=== PATIENT | female | born 1935 | race Caucasian/White ===

== ENCOUNTER 2021-08-22 11:15 | Inpatient (IN) | payer MEDICARE ==
[2021-08-22 12:36] LABS: #Eosinphils 0.1 10x3/uL (0.0-0.5); #Monocytes 0.7 10x3/uL (0.0-1.1); #Neutrophils 5.1 10x3/uL (1.5-8.4); %Basophils 0.6 % (0.0-2.0); %Eosinophils 1.1 % (0.0-6.0); %Lymphocytes 15.8 % (18.0-47.0); %Monocytes 9.7 % (0.0-10.0); %Neutrophils 72.4 % (40.0-75.0); Hemoglobin 12.4 g/dL (12.0-15.5); Mean Corpuscular HGB CONC 31.9 g/dL (32.0-36.0); Mean Corpuscular Hemoglobin 29.5 pg (27.0-33.0); Mean Corpuscular Volume 92.6 fl (81.6-98.3); Mean Platelet Volume 10.6 fl (7.4-10.4); Platelet Count 233 10x3/uL (150-450); RBC Distribution Width 14.3 % (11.5-14.5)
[2021-08-22 12:50] LABS: Bilirubin Neg (Negative); Blood, Urine 10 (Negative); Clarity Clear (Clear); Glucose, Urine (Dipstick) Normal (Negative); Ketone, Urine Negative (Negative); Leukocyte 500 (Negative); Nitrite Negative (Negative); Protein, Urine (Dipstick) 30 mg/dl (Neg-Trace); Urobilinogen Normal mg/dL (Less than 2)
[2021-08-22 12:55] LABS: Prothrombin Time 10.8 sec (9.5-12.1)
[2021-08-22 12:56] LABS: Anion Gap 18 mmol/L (10-20); BUN (Urea Nitrogen) 34 mg/dL (9.8-20.1); Calc. Creatinine Clearance 0 mL/min (70-130); Calcium 9.7 mg/dL (7.8-10.44); Carbon Dioxide 22 mmol/L (23-31); Chloride 106 mmol/L (98-107); Glucose 81 mg/dL (83-110); Sodium 141 mmol/L (136-145)
[2021-08-22 12:59] LABS: Potassium 5.2 mmol/L (3.5-5.1)
[2021-08-22 17:56] LABS: SARS-CoV-2 PCR by NAA Not Detected (NotDetected)
[2021-08-23 09:18] VITALS: BMI 34.7
[2021-08-27] MEDS ORDERED: Sodium Chloride 0.9% 100 ML ONE (07:46)
[2021-08-27] MEDS ORDERED: Tranexamic Acid 1,000 MG/10 ML VIAL ONE ×2 (07:46→11:56)
[2021-08-27] MEDS ORDERED: Midazolam HCl 2 mg/2 ml Vial ONE (07:58)
[2021-08-27] MEDS ORDERED: Vancomycin 1.5 GRAM/300 ML BAG 1.5 GM in Premix Bag 1 BAG IVPB SCH (08:15)
[2021-08-27] MEDS ORDERED: Fentanyl 100 MCG/2 ML VIAL IV PRN (08:31)
[2021-08-27] MEDS ORDERED: Lidocaine 1% PF 5 ML VIAL ONE (08:44)
[2021-08-27] MEDS ORDERED: PROPOFOL 200 MG/20 ML VIAL ONE (08:44)
[2021-08-27] MEDS ORDERED: Dexamethasone 20 MG/5 ML VIAL ONE (08:44)
[2021-08-27] MEDS ORDERED: Ondansetron PF 4 MG/2 ML Vial ONE (08:44)
[2021-08-27] MEDS ORDERED: Bupivacaine HCl 0.5%/Epinephrine 1:200,000/PF 30 ml Vial ONE (08:44)
[2021-08-27] MEDS ORDERED: Promethazine HCl 25 MG/ML VIAL IM PRN ×3 (08:45→11:28)
[2021-08-27] MEDS ORDERED: Ondansetron PF 4 MG/2 ML Vial IVP PRN ×2 (08:45→11:14)
[2021-08-27] MEDS ORDERED: traMADol HCl 50 MG TAB PO PRN ×2 (08:45)
[2021-08-27] MEDS ORDERED: Zolpidem Tartrate 5 MG TAB PO PRN ×2 (08:45→11:14)
[2021-08-27] MEDS ORDERED: Ropivacaine 0.2% 550 ML 550 ML NERVE BLCK SCH (08:45)
[2021-08-27] MEDS ORDERED: Fentanyl 250 MCG/5 ML VIAL ONE ×2 (08:50→12:07)
[2021-08-27] MEDS ORDERED: Bupivacaine PF 0.5% 30 ML VIAL ONE (09:10)
[2021-08-27] MEDS ORDERED: ceFAZolin 2 GM/DEX 5% 100 ML BAG ONE (09:19)
[2021-08-27] MEDS ORDERED: methylPREDNISolone Acetate 40 mg/ml Vial ONE (09:40)
[2021-08-27] MEDS ORDERED: Lidocaine 1% (PF) 30 ML VIAL ONE (09:40)
[2021-08-27] MEDS ORDERED: diphenhydrAMINE 25 MG CAP PO PRN (11:14)
[2021-08-27] MEDS ORDERED: Acetaminophen 325 MG TAB PO PRN (11:14)
[2021-08-27] MEDS ORDERED: Fluticasone Propionate Nasal Spray 16 gm Bottle NASAL PRN (11:15)
[2021-08-27] MEDS ORDERED: Tranexamic Acid 1,000 MG in Sodium Chloride 0.9% 100 ML IVPB SCH (11:15)
[2021-08-27] MEDS ORDERED: Promethazine HCl 25 MG/ML VIAL IVPB PRN (11:28)
[2021-08-27] MEDS ORDERED: Ondansetron HCl/PF 4 MG/2 ML Vial IVP PRN (11:28)
[2021-08-27] MEDS ORDERED: Ketorolac Tromethamine 30 MG/ML VIAL ONE (12:13)
[2021-08-27] MEDS: Ketorolac Tromethamine 30 MG/ML VIAL IVP SCH ×2 (12:16→18:51)
[2021-08-27] MEDS: Sodium Chloride 0.9% 1,000 ML IV SCH (12:58)
[2021-08-27] MEDS ORDERED: CEFAZOLIN 2 GM in Sodium Chloride 0.9% 100 ML IVPB SCH (17:00)
[2021-08-27] MEDS: Atorvastatin Calcium 20 MG TAB PO SCH (19:57)
[2021-08-27] MEDS: Ferrous Gluconate 324 MG TAB PO SCH (19:57)
[2021-08-27] MEDS: Aspirin 81 mg Enteric Coated Tablet PO SCH (19:57)
[2021-08-27] MEDS: Lisinopril 20 MG TAB PO SCH (19:59)
[2021-08-27] MEDS: Senokot S 8.6-50 MG TAB PO SCH (20:07)
[2021-08-27] MEDS ORDERED: Vancomycin HCl 1.5 GM in Sodium Chloride 0.9% 250 ML 300 ML IVPB SCH (22:00)
[2021-08-28] MEDS: Ketorolac Tromethamine 30 MG/ML VIAL IVP SCH ×4 (00:56→18:12)
[2021-08-28] MEDS: Sodium Chloride 0.9% 1,000 ML IV SCH ×3 (00:57→18:12)
[2021-08-28] MEDS ORDERED: CEFAZOLIN 2 GM, Admixture Fee 1 EACH in Sodium Chloride 0.9% 100 ML IVPB SCH (04:00)
[2021-08-28] MEDS: Levothyroxine Sodium 125 MCG TAB PO SCH (06:13)
[2021-08-28 07:25] LABS: Mean Corpuscular Hemoglobin 30.4 pg (27.0-31.0); Mean Corpuscular Volume 94.9 fL (78.0-98.0); Mean Platelet Volume 7.6 fL (7.4-10.4); Platelet Count 233 thou/uL (130-400); RBC Distribution Width 12.8 % (11.5-14.5); Red Blood Cell (RBC) Count 3.61 mill/uL (4.20-5.40); White Blood Cell (WBC) Count 14.5 thou/uL (4.8-10.8)
[2021-08-28] MEDS ORDERED: Aspirin Chewable 81 MG TAB PO SCH (09:00)
[2021-08-28] MEDS: Lisinopril 20 MG TAB PO SCH ×2 (09:46→22:08)
[2021-08-28] MEDS: Aspirin 81 mg Enteric Coated Tablet PO SCH ×2 (09:46→22:09)
[2021-08-28] MEDS: Cholecalciferol 1,000 UNITS (25 MCG) TAB PO SCH (09:48)
[2021-08-28] MEDS: Ferrous Gluconate 324 MG TAB PO SCH ×2 (09:48→22:09)
[2021-08-28] MEDS: Hydrochlorothiazide 25 MG TAB PO SCH (09:49)
[2021-08-28] MEDS: Multivitamin W/ Minerals 1 TAB PO SCH (09:49)
[2021-08-28] MEDS: Meclizine HCl 25 MG TAB PO SCH (09:49)
[2021-08-28] MEDS: Amlodipine 5 MG TAB PO SCH (09:49)
[2021-08-28] MEDS: Oxybutynin ER 5 MG TAB PO SCH (09:49)
[2021-08-28] MEDS: Senokot S 8.6-50 MG TAB PO SCH ×2 (09:49→22:08)
[2021-08-28] MEDS: Magnesium Oxide 250 MG TAB PO SCH (09:49)
[2021-08-28] MEDS: Atorvastatin Calcium 20 MG TAB PO SCH (22:09)
[2021-08-29] MEDS: Ketorolac Tromethamine 30 MG/ML VIAL IVP SCH ×2 (00:43→04:54)
[2021-08-29] MEDS: HYDROcodone/Acetaminophen 10/325 mg Tablet PO PRN ×4 (02:28→20:31)
[2021-08-29] MEDS: Sodium Chloride 0.9% 1,000 ML IV SCH ×3 (04:55→23:05)
[2021-08-29 05:44] LABS: Hemoglobin 10.2 g/dL (12.0-16.0); Mean Corpuscular HGB CONC 32.7 g/dL (32.0-36.0); Mean Corpuscular Volume 94.9 fL (78.0-98.0); Mean Platelet Volume 7.5 fL (7.4-10.4); Platelet Count 215 thou/uL (130-400); Red Blood Cell (RBC) Count 3.28 mill/uL (4.20-5.40); White Blood Cell (WBC) Count 11.8 thou/uL (4.8-10.8)
[2021-08-29] MEDS: Levothyroxine Sodium 125 MCG TAB PO SCH (05:47)
[2021-08-29] MEDS: Magnesium Oxide 250 MG TAB PO SCH (09:13)
[2021-08-29] MEDS: Senokot S 8.6-50 MG TAB PO SCH ×2 (09:13→20:32)
[2021-08-29] MEDS: Amlodipine 5 MG TAB PO SCH (09:15)
[2021-08-29] MEDS: Meclizine HCl 25 MG TAB PO SCH (09:15)
[2021-08-29] MEDS: Ferrous Gluconate 324 MG TAB PO SCH ×2 (09:15→20:33)
[2021-08-29] MEDS: Multivitamin W/ Minerals 1 TAB PO SCH (09:15)
[2021-08-29] MEDS: Aspirin 81 mg Enteric Coated Tablet PO SCH ×2 (09:15→20:33)
[2021-08-29] MEDS: Cholecalciferol 1,000 UNITS (25 MCG) TAB PO SCH (09:15)
[2021-08-29] MEDS: Lisinopril 20 MG TAB PO SCH ×2 (09:16→20:32)
[2021-08-29] MEDS: Hydrochlorothiazide 25 MG TAB PO SCH (09:16)
[2021-08-29] MEDS: Oxybutynin ER 5 MG TAB PO SCH (09:17)
[2021-08-29] MEDS: Atorvastatin Calcium 20 MG TAB PO SCH (20:33)
[2021-08-30 05:18] LABS: Hemoglobin 9.8 g/dL (12.0-16.0); Mean Corpuscular HGB CONC 32.5 g/dL (32.0-36.0); Mean Corpuscular Hemoglobin 30.8 pg (27.0-31.0); Mean Corpuscular Volume 94.9 fL (78.0-98.0); Mean Platelet Volume 7.2 fL (7.4-10.4); Platelet Count 219 thou/uL (130-400); Red Blood Cell (RBC) Count 3.17 mill/uL (4.20-5.40)
[2021-08-30] MEDS: Levothyroxine Sodium 125 MCG TAB PO SCH (05:21)
[2021-08-30] MEDS: Magnesium Oxide 250 MG TAB PO SCH (08:24)
[2021-08-30] MEDS: Oxybutynin ER 5 MG TAB PO SCH (08:25)
[2021-08-30] MEDS: Meclizine HCl 25 MG TAB PO SCH (08:25)
[2021-08-30] MEDS: Cholecalciferol 1,000 UNITS (25 MCG) TAB PO SCH (08:26)
[2021-08-30] MEDS: Hydrochlorothiazide 25 MG TAB PO SCH (08:27)
[2021-08-30] MEDS: Ferrous Gluconate 324 MG TAB PO SCH (08:27)
[2021-08-30] MEDS: Amlodipine 5 MG TAB PO SCH (08:28)
[2021-08-30] MEDS: Aspirin 81 mg Enteric Coated Tablet PO SCH (08:28)
[2021-08-30] MEDS: Senokot S 8.6-50 MG TAB PO SCH (08:28)
[2021-08-30] MEDS: Lisinopril 20 MG TAB PO SCH (08:30)
[2021-08-30] MEDS: Multivitamin W/ Minerals 1 TAB PO SCH (08:30)
[2021-08-30] MEDS: HYDROcodone/Acetaminophen 10/325 mg Tablet PO PRN ×2 (08:31→15:07)
[2021-08-30 12:04] VITALS: BP 158/63; TEMP 98.5
[2021-08-30] MEDS: Sodium Chloride 0.9% 1,000 ML IV SCH (14:59)
== END 2021-08-30 16:18 | DRG 470 ==
LOC: SURG A 08-27 07:21 → INTOOBSV 08-27 07:21 → SURG B 08-27 13:27 → OBSVTOIN 08-30 06:59
PROVIDERS: ADMIT Orthopaedic Surgery; ATTEND Orthopaedic Surgery
PROC: 0SRC0J9 Replacement of Right Knee Joint with Synthetic Substitute, Cemented, Open Approach (ICD-10-PCS; principal; 2021-08-27)
PROC: 3E0U33Z Introduction of Anti-inflammatory into Joints, Percutaneous Approach (ICD-10-PCS; 2021-08-27)
PROC: 3E0U3BZ Introduction of Anesthetic Agent into Joints, Percutaneous Approach (ICD-10-PCS; 2021-08-27)
DX: M17.0 Bilateral primary osteoarthritis of knee (principal); Z23 Encounter for immunization; Z20.822 Contact with and (suspected) exposure to COVID-19; M25.761 Osteophyte, right knee; E78.5 Hyperlipidemia, unspecified; I10 Essential (primary) hypertension; J30.2 Other seasonal allergic rhinitis; E03.9 Hypothyroidism, unspecified; E66.9 Obesity, unspecified; K59.00 Constipation, unspecified; Z98.42 Cataract extraction status, left eye; Z98.41 Cataract extraction status, right eye; Z68.34 Body mass index [BMI] 34.0-34.9, adult; Z79.899 Other long term (current) drug therapy; Z79.82 Long term (current) use of aspirin; Z79.890 Hormone replacement therapy
CPT/HCPCS: 36415; 80048; 81003; 85025; 85027; 85610; 86850; 86900; 86901; 87081; 96365; 96366; 96375; 96376; A4306; C1713; C1776; G0378; J0690; J1100; J1885; J2001; J2250; J2405; J2704; J2795; J2920; J3010; J3370; J3490; J7050; S0020; U0003; U0005